=== PATIENT | female | born 1950 | race Two or more races ===

== ENCOUNTER 2021-09-19 14:50 | Emergency (ER) | payer OTHER ==
[~2021-09-19] VITALS: Ht 157.5 cm; Wt 69.4 kg
[2021-09-19 17:00] LABS: Hemoglobin 14.8 g/dL (12.2-16.2); Mean Corpuscular Hemoglobin 29.1 pg (28.0-32.0); Mean Corpuscular Hgb Conc. 33.7 g/dL (32.0-36.0); Mean Corpuscular Volume 86.4 fL (80.0-100.0); Red Blood Cells 5.09 10^6/uL (4.0-5.20); Red Cell Distribution Width 15.4 % (11.8-14.3); White Blood Cell 9.5 10^3/uL (4.4-10.8)
[2021-09-19 17:12] LABS: Albumin 3.4 g/dL (3.4-5.0); Calcium 9.1 mg/dL (8.5-10.1); Magnesium 2.4 mg/dL (1.6-2.6); Potassium 4.3 mmol/L (3.5-5.1)
[2021-09-19 17:16] LABS: BUN/Creatinine Ratio 11.3; Bilirubin, Total 0.5 mg/dL (0.2-1.0); Total Protein 7.7 g/dL (6.4-8.2)
[2021-09-19 17:30] LABS: Basophils % (manual) 0 (0.0-2.0); Blast Cells 0; Metamyelocytes % 0; Myelocytes % 0; Promyelocytes % 0
[2021-09-19 18:15] LABS: Band Neutrophils % (manual) 1; Eosinophils % (manual) 2 (0-7); Lymphocytes % (manual) 32 (10.0-50.0); Monocytes % (manual) 6 (0-12); Reactive Lymphocytes 20
[2021-09-19 20:01] LABS: Urine Bacteria NONE SEEN /hpf (None Seen); Urine Blood 1+ /uL (Negative); Urine Mucus FEW (None Seen); Urine Specific Gravity 1.013 (1.001-1.035); Urine WBC 1 /hpf (0 - 5)
[2021-09-20 00:07] VITALS: BP 108/74
== END 2021-09-20 00:11 | disposition home or self-care (01) ==
LOC: ER 14:50
DX: B34.9 Viral infection, unspecified (principal); R74.8 Abnormal levels of other serum enzymes; R50.9 Fever, unspecified
CPT/HCPCS: 36415; 71045; 76705; 80053; 81001; 83735; 85007; 85027; 93005

== ENCOUNTER → 2022-01-05 | Outpatient (CLI) | payer OTHER ==
[2022-01-05 10:54] LABS: Basophils # (auto) 0 10 ^3/uL (0-0.2); Basophils % (auto) 0.7 % (0.0-2.0); Eosinophils # (auto) 0.2 10 ^3/uL (0-0.8); Eosinophils % (auto) 3.6 % (0.0-7.0); Hematocrit 45.1 % (36.0-46.0); Hemoglobin 14.3 g/dL (12.2-16.2); Lymphocytes # (auto) 2.9 10 ^3/uL (0.4-5.4); Lymphocytes % (auto) 47.7 % (10.0-50.0); Mean Corpuscular Hemoglobin 28.3 pg (28.0-32.0); Mean Corpuscular Hgb Conc. 31.8 g/dL (32.0-36.0); Monocytes # (auto) 0.5 10 ^3/uL (0-1.3); Monocytes % (auto) 8.1 % (0.0-12.0); Neutrophils # (auto) 2.4 10 ^3/uL (1.6-8.6); Neutrophils % (auto) 39.9 % (37.0-80.0); Nucleated Red Blood Cells % 0.2 %; Red Blood Cells 5.07 10^6/uL (4.0-5.20); Red Cell Distribution Width 15.1 % (11.8-14.3); White Blood Cell 6.1 10^3/uL (4.4-10.8)
[2022-01-05 12:12] LABS: Potassium 4.4 mmol/L (3.5-5.1)
[2022-01-05 12:19] LABS: Albumin 3.6 g/dL (3.4-5.0); BUN/Creatinine Ratio 23.4; Bilirubin, Total 0.5 mg/dL (0.2-1.0); Calcium 9.1 mg/dL (8.5-10.1); Total Protein 7.3 g/dL (6.4-8.2)
[2022-01-05 12:42] LABS: Free T4 (Free Thyroxine) 1.04 ng/dL (0.89-1.76)
[2022-01-05 12:43] LABS: Free T3 3.61 pg/mL (2.3-4.2); T3 Total 1.23 ng/mL (0.60-1.81)
[2022-01-07 09:47] LABS: Hepatitis B Surface Antibody Negative (Negative)
[2022-01-07 10:19] LABS: Hepatitis A Total Antibody Negative (Negative)
[2022-01-07 11:37] LABS: Hepatitis A Ab IgM Negative; Hepatitis B Core IgM Negative; Hepatitis C Antibody Negative (Negative)
== END | disposition home or self-care (01) ==
LOC: LAB 10:38
PROVIDERS: ATTEND Internal Medicine
DX: K51.90 Ulcerative colitis, unspecified, without complications (principal); R73.03 Prediabetes
CPT/HCPCS: 36415; 80053; 80061; 82043; 83036; 84439; 84443; 84480; 84481; 85025; 86704; 86705; 86706; 86708; 86709; 86803; 87340

== ENCOUNTER → 2022-04-05 | Outpatient (CLI) | payer OTHER ==
[2022-04-05 13:24] LABS: Cholesterol 175 mg/dL (< 200); HDL Cholesterol 38 mg/dL (40-59); LDL Cholesterol 97 mg/dL (< 100); Triglycerides 204 mg/dL (< 150)
== END | disposition home or self-care (01) ==
LOC: LAB 10:16
PROVIDERS: ATTEND Internal Medicine
DX: R73.03 Prediabetes (principal)
CPT/HCPCS: 36415; 80061; 83036